=== PATIENT | female | born 1965 | race Caucasian/White ===

== ENCOUNTER 2017-08-16 07:31 | Inpatient (IN) | payer OTHER ==
[2017-08-16 08:16] LABS: ADD MAN DIFF? NO
[2017-08-16 08:23] LABS: WHITE BLOOD COUNT 3.9 10^3/ul (4.8-10.8)
[2017-08-16 08:23] LABS: BASOPHILS % 0.5 % (0.0-2.0); EOSINOPHILS # 0.1 10^3/ul (0.0-0.5); EOSINOPHILS % 1.8 % (0.0-7.0); HEMATOCRIT 36.3 % (37.0-47.0); LYMPHOCYTES # 1.2 10^3/ul (0.8-2.9); LYMPHOCYTES % 30.5 % (15.0-51.0); MEAN CORPUSCULAR HGB CONC 33.1 g/dl (32.0-37.0); MEAN CORPUSCULAR VOLUME 84.8 fl (82.0-101.0); MEAN PLATELET VOLUME 9.6 fl (7.4-10.4); MONOCYTE # 0.6 10^3/ul (0.3-0.9); NEUTROPHILS % 50.9 % (39.0-77.0); PLATELET COUNT 214 10^3/UL (140-415); RED BLOOD COUNT 4.28 10^6/ul (4.20-5.40); RED CELL DISTRIBUTION WIDTH 13.2 % (11.5-14.5)
[2017-08-16 08:51] LABS: ANION GAP 11 (8-16); BLOOD UREA NITROGEN 10 mg/dl (7-20); CALCIUM 8.4 mg/dl (8.4-10.2); CARBON DIOXIDE 28 mmol/L (21-31); CHLORIDE 103 mmol/L (97-110); CREATININE 0.68 mg/dl (0.44-1.00); GLUCOSE 140 mg/dl (70-220); POTASSIUM 3.4 mmol/L (3.5-5.1); SODIUM 139 mmol/L (135-144)
[2017-08-16] MEDS: ALBUTEROL 0.083% (NEB) 2.5 MG/3 ML AMP HHN (08:53)
[2017-08-16] MEDS: ACETAMINOPHEN 500 MG TAB PO (09:01)
[2017-08-16 09:09] LABS: TROPONIN-I < 0.012 ng/ml (0.00-0.12)
[2017-08-16] MEDS ORDERED: ONDANSETRON 4 MG INJ IV (18:00)
[2017-08-16] MEDS: SOD CHLORIDE 0.9% 1,000 ML IV (18:22)
[2017-08-16] MEDS: DOCUSATE SODIUM 100 MG CAP PO (20:30)
[2017-08-16] MEDS: POTASSIUM CHLORIDE (SR) 20 MEQ TAB PO (21:05)
[2017-08-16] MEDS: ZOLPIDEM 5 MG TAB PO (21:47)
[2017-08-17 00:31] LABS: CREATINE KINASE 40 IU/L (23-200)
[2017-08-17 00:42] LABS: CK INDEX 0.6
[2017-08-17 00:43] LABS: CK-MB < 0.22 ng/ml (0.0-2.4); TROPONIN-I < 0.012 ng/ml (0.00-0.12)
[2017-08-17] MEDS: morphine (ER) 30 MG TAB PO ×3 (02:51→20:10)
[2017-08-17] MEDS: SOD CHLORIDE 0.9% 1,000 ML IV (02:52)
[2017-08-17 07:48] LABS: CREATINE KINASE 43 IU/L (23-200)
[2017-08-17 07:59] LABS: CK INDEX 0.5; CK-MB < 0.22 ng/ml (0.0-2.4); TROPONIN-I < 0.012 ng/ml (0.00-0.12)
[2017-08-17 08:08] LABS: ALANINE AMINOTRANSFERASE 26 IU/L (13-69); ALBUMIN 3.5 g/dl (3.3-4.9); ALKALINE PHOSPHATASE 71 IU/L (42-121); ANION GAP 11 (8-16); ASPARTATE AMINO TRANSFERASE 23 IU/L (15-46); BILIRUBIN,INDIRECT 0.1 mg/dl (0-1.1); BILIRUBIN,TOTAL 0.1 mg/dl (0.2-1.3); BLOOD UREA NITROGEN 6 mg/dl (7-20); CALCIUM 8.6 mg/dl (8.4-10.2); CARBON DIOXIDE 27 mmol/L (21-31); CHLORIDE 105 mmol/L (97-110); CREATININE 0.61 mg/dl (0.44-1.00); GLUCOSE 105 mg/dl (70-220); MAGNESIUM 1.9 mg/dl (1.7-2.5); POTASSIUM 4.2 mmol/L (3.5-5.1); SODIUM 139 mmol/L (135-144); TOTAL PROTEIN 6.7 g/dl (6.1-8.1)
[2017-08-17 08:18] LABS: HEMOGLOBIN A1C 5.7 % (0-5.9)
[2017-08-17 08:38] LABS: THYROID STIMULATING HORMONE 0.336 MIU/L (0.465-4.680)
[2017-08-17] MEDS: DOCUSATE SODIUM 100 MG CAP PO ×2 (09:00→20:09)
[2017-08-17] MEDS: FAMOTIDINE 20 MG TAB PO (09:10)
[2017-08-17] MEDS: CITALOPRAM 20 MG TAB PO (09:10)
[2017-08-17 10:44] LABS: CHOLESTEROL 173 mg/dl (100-200)
[2017-08-17 10:44] LABS: CHOL/HDL RATIO 3.3 RATIO; HDL CHOLESTEROL 51 mg/dl (37-92); LDL CHOLESTEROL,CALCULATED 109 mg/dl; TRIGLYCERIDES 63 mg/dl (0-149)
[2017-08-17 11:16] LABS: B-TYPE NATRIURETIC PEPTIDE 685 PG/ML (0-125)
[2017-08-17] MEDS: CEFTRIAXONE 1 GM/50 ML (PMX) 50 ML IVPB (11:54)
[2017-08-17] MEDS: AZITHROMYCIN 500MG/NS (PMX) 250 ML IVPB (12:51)
[2017-08-17 13:27] LABS: ADD UMIC YES; UR ASCORBIC ACID NEGATIVE (NEGATIVE); UR BILIRUBIN (Dip) NEGATIVE (NEGATIVE); UR BLOOD (Dip) 1+ mg/dL (NEGATIVE); UR CLARITY CLEAR (CLEAR); UR COLOR STRAW (YELLOW); UR GLUCOSE (Dip) NEGATIVE (NEGATIVE); UR KETONES (Dip) NEGATIVE (NEGATIVE); UR LEUKOCYTE ESTERASE (Dip) NEGATIVE Leu/ul (NEGATIVE); UR NITRITE (Dip) NEGATIVE (NEGATIVE); UR RBC 2 /HPF (0-5); UR SPECIFIC GRAVITY (Dip) 1.009 (1.003-1.030); UR TOTAL PROTEIN (Dip) NEGATIVE (NEGATIVE); UR UROBILINOGEN (Dip) NEGATIVE (NEGATIVE); UR WBC 0 /HPF (0-5)
[2017-08-17 13:50] LABS: AMPHETAMINE/METHAMPHETAMINE Negative (NEGATIVE); BARBITURATES Negative (NEGATIVE); BENZODIAZEPINES Negative (NEGATIVE); CANNABINOIDS Negative (NEGATIVE); COCAINE Negative (NEGATIVE); OPIATES Positive (NEGATIVE)
[2017-08-17] MEDS: ALBUTEROL/IPRATROPIUM (NEB) 3 ML AMP HHN ×2 (14:07→19:29)
[2017-08-17] MEDS: LORAZEPAM 1 MG TAB PO (15:32)
[2017-08-17] MEDS: ZOLPIDEM 5 MG TAB PO (21:39)
[2017-08-18] MEDS: ALBUTEROL/IPRATROPIUM (NEB) 3 ML AMP HHN ×4 (07:13→19:16)
[2017-08-18 08:23] LABS: ADD MAN DIFF? NO
[2017-08-18 08:28] LABS: HEMATOCRIT 40.2 % (37.0-47.0); HEMOGLOBIN 13.2 g/dl (12.0-16.0); LYMPHOCYTES % 33.2 % (15.0-51.0); MEAN CORPUSCULAR HEMOGLOBIN 27.6 pg (29.0-33.0); MEAN CORPUSCULAR HGB CONC 32.8 g/dl (32.0-37.0); MEAN CORPUSCULAR VOLUME 83.9 fl (82.0-101.0); MEAN PLATELET VOLUME 9.6 fl (7.4-10.4); MONOCYTE # 0.5 10^3/ul (0.3-0.9); NEUTROPHIL # 1.5 10^3/ul (1.6-7.5); NEUTROPHILS % 50.8 % (39.0-77.0); PLATELET COUNT 259 10^3/UL (140-415); RED BLOOD COUNT 4.79 10^6/ul (4.20-5.40)
[2017-08-18 08:46] LABS: PHOSPHORUS 4.3 mg/dl (2.5-4.9)
[2017-08-18 08:46] LABS: ANION GAP 16 (8-16); BLOOD UREA NITROGEN 7 mg/dl (7-20); CALCIUM 9.5 mg/dl (8.4-10.2); CARBON DIOXIDE 28 mmol/L (21-31); CHLORIDE 105 mmol/L (97-110); CREATININE 0.66 mg/dl (0.44-1.00); GLUCOSE 115 mg/dl (70-220); MAGNESIUM 2.1 mg/dl (1.7-2.5); POTASSIUM 4.2 mmol/L (3.5-5.1); SODIUM 145 mmol/L (135-144)
[2017-08-18] MEDS: CITALOPRAM 20 MG TAB PO (09:12)
[2017-08-18] MEDS: FAMOTIDINE 20 MG TAB PO (09:12)
[2017-08-18] MEDS: morphine (ER) 30 MG TAB PO ×2 (09:12→20:19)
[2017-08-18] MEDS: DOCUSATE SODIUM 100 MG CAP PO ×2 (09:12→20:19)
[2017-08-18] MEDS: INFLUENZA VIRUS VACCINE 0.5 ML (DISPENSING) IM* (09:16)
[2017-08-18] MEDS: LORAZEPAM 1 MG TAB PO ×2 (09:22→16:02)
[2017-08-18] MEDS ORDERED: GUAIFENESIN 20 MG/ML 5ML CUP PO (11:00)
[2017-08-18] MEDS: CEFTRIAXONE 1 GM/50 ML (PMX) 50 ML IVPB (12:20)
[2017-08-18] MEDS: AZITHROMYCIN 500MG/NS (PMX) 250 ML IVPB (12:21)
[2017-08-18] MEDS: ACETAMINOPHEN 325 MG TAB PO (16:02)
[2017-08-19 07:26] LABS: HEMATOCRIT 37.9 % (37.0-47.0); HEMOGLOBIN 12.5 g/dl (12.0-16.0); MEAN CORPUSCULAR HEMOGLOBIN 28.2 pg (29.0-33.0); MEAN CORPUSCULAR VOLUME 85.4 fl (82.0-101.0); MEAN PLATELET VOLUME 9.9 fl (7.4-10.4); PLATELET COUNT 278 10^3/UL (140-415); RED BLOOD COUNT 4.44 10^6/ul (4.20-5.40); RED CELL DISTRIBUTION WIDTH 13.2 % (11.5-14.5)
[2017-08-19 07:26] LABS: WHITE BLOOD COUNT 3.9 10^3/ul (4.8-10.8)
[2017-08-19 07:38] LABS: ADD MAN DIFF? YES; POSITIVE DIFF @See below
[2017-08-19 07:43] LABS: MAGNESIUM 2.2 mg/dl (1.7-2.5)
[2017-08-19 07:46] LABS: ANION GAP 14 (8-16); BLOOD UREA NITROGEN 12 mg/dl (7-20); CALCIUM 9.1 mg/dl (8.4-10.2); CARBON DIOXIDE 27 mmol/L (21-31); CHLORIDE 108 mmol/L (97-110); CREATININE 0.64 mg/dl (0.44-1.00); GLUCOSE 98 mg/dl (70-220); POTASSIUM 4.4 mmol/L (3.5-5.1); SODIUM 145 mmol/L (135-144)
[2017-08-19] MEDS: ALBUTEROL/IPRATROPIUM (NEB) 3 ML AMP HHN ×2 (07:48→15:05)
[2017-08-19] MEDS: CITALOPRAM 20 MG TAB PO (09:00)
[2017-08-19] MEDS: morphine (ER) 30 MG TAB PO (09:01)
[2017-08-19] MEDS: FAMOTIDINE 20 MG TAB PO (09:01)
[2017-08-19] MEDS: DOCUSATE SODIUM 100 MG CAP PO (09:01)
[2017-08-19 11:11] LABS: ANISOCYTOSIS 2+ (0-0); BAND NEUTROPHILS #M 0.1 10^3/ul (0.0-0.6); BAND NEUTROPHILS % (M) 5 % (0-4); BASOPHILS % (M) 1 % (0-2); EOSINOPHILS % (M) 1 % (0-7); GIANT THROMBO% (M) 3 % (0-0); LYMPHOCYTES #M 1.1 10^3/ul (0.8-2.9); LYMPHOCYTES % (M) 29 % (15-51); MICROCYTOSIS 1+ (0-0); MONOCYTE #M 0.2 10^3/ul (0.3-0.9); MONOCYTES % (M) 7 % (0-11); OVALOCYTES 1+ (0-0); PLASMAC%(M) 2 % (0); PLATELET ESTIMATE NORMAL; POIKILOCYTOSIS 1+ (0-0); POLYCHROMASIA 1+ (0-0); REACTIVE LYMPHOCYTES #M 0.1 10^3/ul (0.0-0.0); REACTIVE LYMPHOCYTES% (M) 3 % (0-0); SEGMENTED NEUTROPHILS (M) % 52 % (39-77); SMUDGE%M 1 % (0-0)
[2017-08-19] MEDS: CEFTRIAXONE 1 GM/50 ML (PMX) 50 ML IVPB (12:21)
[2017-08-19] MEDS: AZITHROMYCIN 500MG/NS (PMX) 250 ML IVPB (13:39)
[2017-08-19] MEDS: LORAZEPAM 1 MG TAB PO (15:09)
== END 2017-08-19 18:25 | disposition home or self-care (01) | DRG 312 ==
LOC: TEL 17:26 → E/R 07:31 → TEL 09:53
DX: R55 Syncope and collapse (principal); J96.01 Acute respiratory failure with hypoxia; J18.9 Pneumonia, unspecified organism; J98.11 Atelectasis; G89.4 Chronic pain syndrome; F41.9 Anxiety disorder, unspecified; D32.0 Benign neoplasm of cerebral meninges; R51 Headache
CPT/HCPCS: 36415; 70450; 70553; 71045; 80048; 80061; 80076; 80307; 81001; 82550; 82553; 83036; 83735; 83880; 84100; 84439; 84443; 84484; 84703; 85025; 87400; 90686; 93005; 93306; 93880; 94640; 94664; 97163; 99285-25